=== PATIENT | female | born 1985 | race Caucasian/White ===

== ENCOUNTER 2016-09-27 22:11 | Emergency (ER) | payer OTHER ==
--- NOTE | 2016-09-27 23:55 | DIAGNOSTIC IMAGING REPORT ---
PROCEDURE: XR CHEST 2 VIEW INDICATION: CHEST PAIN TECHNIQUE: PA and lateral views. COMPARISON: None. FINDINGS: Lungs are clear. Heart and mediastinum are normal. Thorax is normal. IMPRESSION: 1. Negative chest.
--- NOTE | 2016-09-28 00:27 | ED CLINICAL REPORT ---
Clinical Report - Physicians/Mid Levels [facility] [address] [place] [address] 09/27/2016 22:12 Patient: ISAC JURADO Arrived- By private vehicle. Historian- patient. HISTORY OF PRESENT ILLNESS Chief Complaint: CHEST DISCOMFORT. This started today and is still present. It was abrupt in onset and has been constant but is not gone now. Onset during work. At its maximum, severity described as moderate. When seen in the E.D., severity described as moderate. Modifying factors- (reports it is non-exertional). Not worsened by anything. Not relieved by anything. It is described as "pain" and it is described as located in the central chest area. No radiation. No nausea, vomiting, difficulty breathing or diaphoresis. No additional chest pain. (reports no hemoptysis, leg swelling, or recent trauma). Similar symptoms previously: Many times. Recent medical care: Not recently seen/assessed. REVIEW OF SYSTEMS No fever, chills, sore throat, abdominal pain or black stools. No difficulty with urination or bloody stools. All systems otherwise negative, except as recorded above. PAST HISTORY See nurses notes. Denies the following risk factors for DVT/PE - history of DVT and pulmonary embolism, recent surgery, recent [place] and congestive heart failure. Denies the following risk factors for DVT/PE - cancer, clotting disorder, estrogens, obesity and immobility. Denies the following risk factors for DVT/PE - advanced in age and vena cava filter. SOCIAL HISTORY Never smoker. No alcohol use or drug use. No recent travel. Is a local resident. FAMILY HISTORY Negative. No history of heart disease. No family history of premature onset heart disease or aortic aneurysm. ADDITIONAL NOTES The nursing notes have been reviewed. PHYSICAL EXAM Vital Signs: 09/27/2016 22:20 BP: 123/71. HR: 72. RR: 20. O2 saturation: 98%. Temp: 98.3 F. Pain level now: 5/10. Blood pressure normal. Oxygen saturation normal. Appearance: Alert. Oriented X3. No acute distress. Eyes: Pupils equal, round and reactive to light. Eyes normal inspection. (right iris is brown and left is blue). ENT: Ears normal. Nose normal. Pharynx normal. Neck: Normal inspection. Neck supple. CVS: Normal heart rate and rhythm. Heart sounds normal. Pulses normal. Respiratory: No respiratory distress. Breath sounds normal. Chest nontender. Abdomen: Soft and nontender. Bowel sounds normal. No organomegaly. No mass. Femoral pulses equal. Back: Normal external inspection. Skin: Skin warm and dry. Normal skin color. No rash. Normal skin turgor. Extremities: Extremities exhibit normal ROM. No lower extremity edema. Neuro: Oriented X 3. No motor deficit. No sensory deficit. LABS, X-RAYS, AND EKG EKG: No acute process. No acute ischemia. Normal EKG. Normal sinus rhythm. Rate: 62. Normal P waves. Normal JOSEMANUEL. Normal QRS complex. Normal axis. Normal ST and T waves, QT and QTc. The study has been interpreted contemporaneously by me. The study has been independently viewed by me. The EKG appears to be a good tracing. Chest X-ray: No acute disease. Normal lung markings present. No infiltrate. Views: PA and lateral. The X-rays were independently viewed by me and interpreted contemporaneously by me. PROGRESS AND PROCEDURES Course of Care: The patient is a pleasant 28-year-old female with no pertinent past medical history presenting for anxiety and chest pain. He is at low risk for cardiac etiology of the chest pain. Patient is less than 35 years old. Patient is also no family history of early cardiac disease. Patient is currently PE RC negative. We'll evaluate patient's his symptoms today with EKG to check for any signs of conduction abnormalities as well as other abnormalities withcardiopulmonary function in regards to pneumonia, pneumothorax. workup does not show any acute abnormalities. Patient with normal EKG. No abnormalities on chest x-ray. Patient continues to be resting in bed and in no acute distress. Head discussion with patient and with significant other was at bedside about possible causes for the chest pain. At this time, recommended patient follow-up with cardiology and follow up with her primary care doctor for further evaluation of the chest pain. Do not feel patient is having an acute myocardial infarction or other more sinister cause of her chest pain here today in the emergency department. Discussed with patient workup, diagnosis, home care, follow-up, and return precautions. All questions answered. The patient expressed understanding of these instructions and was agreeable to them. Do not feel patient needs to be admitted to the hospital require further emergency department evaluation. Patient is stable outpatient candidate. Disposition: Discharged. Condition: good. CLINICAL IMPRESSION Chest pain characterized as "discomfort" .12 lead EKG performed. 09/27/2016 22:20 BP: 123/71. HR: 72. RR: 20. O2 saturation: 98%. Temp: 98.3 F. Pain level now: 5/10. Blood pressure normal. Oxygen saturation normal. INSTRUCTIONS Warnings: GENERAL WARNINGS: Return or contact your physician immediately if your condition worsens or changes unexpectedly, if not improving as expected, or if other problems arise. SPECIFICALLY, return if you develop chest, neck, jaw, shoulder, arm, or back pain, difficulty breathing, a fluttering sensation in your chest, lightheadedness, fainting, excessive fatigue, or sudden sweating. Your Current Medications: CONTINUE TAKING THE FOLLOWING MEDICATIONS: None*. Prescription Medications: Pepcid 20 mg: take 1 orally every 12 hours as needed for indigestion, upset stomach or heartburn. Dispense thirty (30). No refills. Substitution is permissible. Follow-up: Return to the emergency department as needed. Follow up with your doctor in three days. Reason for referral: recheck today's concerns. Summary of care provided to patient via paper. Screening today revealed the patient's blood pressure to be in the normal range. The patient should follow up with a primary care provider for blood pressure management. Understanding of the discharge instructions verbalized by patient. Follow-up with: Eze Hilliard MD, Cardiology, [phone], [address], [place] [address] Follow up in three days. Reason for referral: recheck today's concerns. Summary of care provided to patient via paper. (Electronically signed by Karel Wing Dr. 10/04/2016 22:59)
--- NOTE | 2016-09-28 00:27 | ED ORDER SUMMARY ---
..... 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 Operator (Continuous) (22:25 09/27/2016 HSoule per protocol) (22:44 HSoule) EKG - ER Stat (22:26 09/27/2016 HSoule per protocol) (Ack 22:37 AMcQuoid ER Tech1) (Cancelled: Duplicate Order23:21 HSoule) Ball Truing Machine Operator (Continuous) (CP) (22:43 09/27/2016 Tyree Johnson) (22:44 HSoule) Chest 2V Urgent (22:43 09/27/2016 Tyree Johnson) (Ack 22:59 AMcQuoid ER Tech1) (0:26 GUnger) EKG - ER Stat (22:43 09/27/2016 Tyree Johnson) (22:44 HSoule) Pulse oximeter (22:43 09/27/2016 Tyree Johnson) (22:44 HSoule) MEDICATION ORDERS: IV FLUIDS: IV Saline Lock (22:26 09/27/2016 HSoule per protocol) (22:26 HSoule) Ativan IV 0.25 mg (HIGH ALERT MEDICATION, NOW) (23:31 09/27/2016 Tyree Johnson) (Ack 23:34 HSoule) (23:41 RCollier R.N.) ORDER SHEET NOTES: [Electronically signed by Lois Tobin (03:34 09/28/2016)] [Electronically signed by Karel Wing Dr. (22:59 10/04/2016)] [Electronically locked/signed by Lois Tobin (03:34 09/28/2016)]
--- NOTE | 2016-09-28 00:27 | ED NURSING NOTES ---
Clinical Report - Nurses [facility] [address] [place] [address] 09/27/2016 22:12 Patient: ISAC JURADO TRIAGE Triage time 22:Sep 27 2016. Acuity: LEVEL 3. Chief Complaint: CHEST PAIN. 22:23 09/27/16. SEPSIS SCREEN: Sepsis Screen: negative. Negative (no infection suspected/documented). CHANO COMA SCORE: Chano Coma Scale: 15- eyes open spontaneously (4); best verbal response- oriented x 4 (5); best motor response- obeys commands (6). --22:23 Lois Tobin 22:20 09/27/16. BP: 123/71. HR: 72. RR: 20. O2 saturation: 98% on room air. Temp: 98.3 F (oral). Pain level now: 5/10. --22:23 Lois Tobin. Weight: 79.3 kg stated. Height/Length: 66 inches Per Patient. BMI: 28.2. --22:21 Lois Tobin. Medications None. --22:21 Lois Tobin. Medication/allergy information source: the patient. --22:23 Lois Tobin. Allergies Celexa. --22:21 Lois Tobin. History Arrived by private vehicle. Historian: patient. Accompanied by family. Primary physician (none). This started today. ( Patient reports chest pain that started today while she was at work. She reports a history of chest pain related to anxiety but is unsure if this is the same thing.). No difficulty breathing or nausea. 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 PAST MEDICAL HX: Immunizations: up-to-date. Last normal menstrual period- Aug 27. SOCIAL HX: Smoker- current status unknown (Occasional). No alcohol use or drug use. No infectious disease exposure. ABUSE ASSESSMENT: No report of abuse. FALL RISK ASSESSMENT: Fall risk assessment completed. No fall risk identified. NUTRITIONAL RISK ASSESSMENT: The nutritional risk assessment revealed no deficiencies. FUNCTIONAL ASSESSMENT: Functional assessment: no impairments noted. LEARNING NEEDS ASSESSMENT: The learning needs assessment revealed no barriers. SKIN INTEGRITY ASSESSMENT: Skin integrity risk assessment completed. No skin integrity risk identified. --22:23 Lois Tobin. PROBLEMS: Dizziness. Anxiety Reaction. --22:21 Lois Tobin. ADDITIONAL SURGERIES: Appendectomy. . Dilatation & Curettage. Ectopic . Oophorectomy. Right Eye Surgery. Rt eye. --22:21 Lois Tobin. Interventions ID band on patient. To treatment room. --22:23 Lois Tobin. PHYSICAL ASSESSMENT GENERAL / NEURO / PSYCH: Alert. Oriented X 4. Appears in no acute distress. HEENT: Mucous membranes are pink. RESPIRATORY: Respirations not labored. CVS: Normal sinus rhythm noted. EXTREMITIES: No lower extremity edema. SKIN: Skin is warm and dry. --22:24 Lois Tobin. NURSING PROGRESS NOTES mechanical intern, pulse oximeter and NIBP monitor placed on patient; monitor alarms on. Patient gowned. Reassurance given to the patient and patient's family. Two patient identifiers checked. Call light placed in reach. Side rails up x 1. Bed placed in lowest position. Brakes of bed on. Patient ready for evaluation- chart flagged and ED physician notified. --22:24 Lois Tobin 22:24 09/27/2016 Site #1 started via IV in the right antecubital space with an 20g angiocath, with aseptic technique and good blood return; one attempt. Blood drawn: rainbow set. Labeled in the presence of the patient and sent to the lab. Saline lock flushed with 10 mL saline. --22:25 Lois Tobin 23:09/27/16. BP: 112/69. HR: 58. O2 saturation: 100% on room air. Pain level now: 01/17. --23: Lois Tobin EKG time: (2310 PM). EKG was ordered, performed by a tech and shown to the ED physician. --23:13 Lauren Le 23:41 09/27/2016 Ativan (LORazepam) IVP 0.25 mg given over 1 minute(s) via site #1. Allergies verified, confirmed 5 rights and sedative warning given to the patient. IV patency established. IV site checked: no pain, redness, or swelling. IV flushed thoroughly pre- and post-medication administration. IVP given by RN. --23:41 Mary Davalos R.N. ( Patient states her pain has decreased after medication). --00:06 Lois Tobin 00:03 09/28/16. BP: 111/64. HR: 86. RR: 20. O2 saturation: 96% on room air. Pain level now: 11/17. --00:06 Lois Tobin. DISPOSITION / DISCHARGE 00:35 09/28/16. Condition at departure: improved and stable. No learning barriers present. Discharge instructions provided and reviewed with the patient and spouse. Reviewed medication(s) side effects, precautions, dosing and course information. Patient and spouse verbalized understanding. Written instructions provided in Telugu. ( Follow up with cardiology in three days). The patient was discharged by the physician. She was discharged home and accompanied by spouse. She left the Emergency Department ambulatory and via private vehicle. Spouse driving. --02:31 Lois Tobin 00:35 09/28/16. BP: 101/57. HR: 60. RR: 17. O2 saturation: 98% on room air. Temp: 98 F (oral). Pain level now: 10/20. --02:31 Lois Tobin 00:35 09/28/2016 Site #1 removed upon discharge. Catheter intact. Bandaid applied. --02:32 Lois Tobin. Locked/Released at 09/28/2016 3:34 by Lois Tobin,
--- NOTE | 2016-09-28 00:27 | ED NURSING NOTES ---
Clinical Report - Nurses [facility] [address] [place] [address] 09/27/2016 22:12 Patient: ISAC JURADO TRIAGE Triage time 22:Sep 27 2016. Acuity: LEVEL 3. Chief Complaint: CHEST PAIN. 22:23 09/27/16. SEPSIS SCREEN: Sepsis Screen: negative. Negative (no infection suspected/documented). CHANO COMA SCORE: Chano Coma Scale: 15- eyes open spontaneously (4); best verbal response- oriented x 4 (5); best motor response- obeys commands (6). --22:23 Lois Tobin 22:20 09/27/16. BP: 123/71. HR: 72. RR: 20. O2 saturation: 98% on room air. Temp: 98.3 F (oral). Pain level now: 5/10. --22:23 Lois Tobin. Weight: 79.3 kg stated. Height/Length: 66 inches Per Patient. BMI: 28.2. --22:21 Lois Tobin. Medications None. --22:21 Lois Tobin. Medication/allergy information source: the patient. --22:23 Lois Tobin. Allergies Celexa. --22:21 Lois Tobin. History Arrived by private vehicle. Historian: patient. Accompanied by family. Primary physician (none). This started today. ( Patient reports chest pain that started today while she was at work. She reports a history of chest pain related to anxiety but is unsure if this is the same thing.). No difficulty breathing or nausea. 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 PAST MEDICAL HX: Immunizations: up-to-date. Last normal menstrual period- Aug 27. SOCIAL HX: Smoker- current status unknown (Occasional). No alcohol use or drug use. No infectious disease exposure. ABUSE ASSESSMENT: No report of abuse. FALL RISK ASSESSMENT: Fall risk assessment completed. No fall risk identified. NUTRITIONAL RISK ASSESSMENT: The nutritional risk assessment revealed no deficiencies. FUNCTIONAL ASSESSMENT: Functional assessment: no impairments noted. LEARNING NEEDS ASSESSMENT: The learning needs assessment revealed no barriers. SKIN INTEGRITY ASSESSMENT: Skin integrity risk assessment completed. No skin integrity risk identified. --22:23 Lois Tobin. PROBLEMS: Dizziness. Anxiety Reaction. --22:21 Lois Tobin. ADDITIONAL SURGERIES: Appendectomy. . Dilatation & Curettage. Ectopic . Oophorectomy. Right Eye Surgery. Rt eye. --22:21 Lois Tobin. Interventions ID band on patient. To treatment room. --22:23 Lois Tobin. PHYSICAL ASSESSMENT GENERAL / NEURO / PSYCH: Alert. Oriented X 4. Appears in no acute distress. HEENT: Mucous membranes are pink. RESPIRATORY: Respirations not labored. CVS: Normal sinus rhythm noted. EXTREMITIES: No lower extremity edema. SKIN: Skin is warm and dry. --22:24 Lois Tobin. NURSING PROGRESS NOTES ekg monitor, pulse oximeter and NIBP monitor placed on patient; monitor alarms on. Patient gowned. Reassurance given to the patient and patient's family. Two patient identifiers checked. Call light placed in reach. Side rails up x 1. Bed placed in lowest position. Brakes of bed on. Patient ready for evaluation- chart flagged and ED physician notified. --22:24 Lois Tobin 22:24 09/27/2016 Site #1 started via IV in the right antecubital space with an 20g angiocath, with aseptic technique and good blood return; one attempt. Blood drawn: rainbow set. Labeled in the presence of the patient and sent to the lab. Saline lock flushed with 10 mL saline. --22:25 Lois Tobin 23:09/27/16. BP: 112/69. HR: 58. O2 saturation: 100% on room air. Pain level now: 01/17. --23: Lois Tobin EKG time: (2310 PM). EKG was ordered, performed by a tech and shown to the ED physician. --23:13 Lauren Le 23:41 09/27/2016 Ativan (LORazepam) IVP 0.25 mg given over 1 minute(s) via site #1. Allergies verified, confirmed 5 rights and sedative warning given to the patient. IV patency established. IV site checked: no pain, redness, or swelling. IV flushed thoroughly pre- and post-medication administration. IVP given by RN. --23:41 Mary Davalos R.N. ( Patient states her pain has decreased after medication). --00:06 Lois Tobin 00:03 09/28/16. BP: 111/64. HR: 86. RR: 20. O2 saturation: 96% on room air. Pain level now: 11/17. --00:06 oLis Tobin. DISPOSITION / DISCHARGE 00:35 09/28/16. Condition at departure: improved and stable. No learning barriers present. Discharge instructions provided and reviewed with the patient and spouse. Reviewed medication(s) side effects, precautions, dosing and course information. Patient and spouse verbalized understanding. Written instructions provided in Yakut. ( Follow up with cardiology in three days). The patient was discharged by the physician. She was discharged home and accompanied by spouse. She left the Emergency Department ambulatory and via private vehicle. Spouse driving. --02:31 Lois Tobin 00:35 09/28/16. BP: 101/57. HR: 60. RR: 17. O2 saturation: 98% on room air. Temp: 98 F (oral). Pain level now: 10/20. --02:31 Lois Tobin 00:35 09/28/2016 Site #1 removed upon discharge. Catheter intact. Bandaid applied. --02:32 Lois Tobin. Locked/Released at 09/28/2016 3:34 by Lois Tobin,
--- NOTE | 2016-09-28 00:27 | ED ORDER SUMMARY ---
..... Patient: ISAC JURADO OrderSheet [facility] VisitID: [id number] [place] [address] 30y, F Registration Date/Time: 09/27/2016 ORDER SHEET Weight: 79.3 kg (stated) Allergies: Celexa GENERAL ORDERS: Associate Professor Of Management (Continuous) (22:25 09/27/2016 HSoule per protocol) (22:44 HSoule) EKG - ER Stat (22:26 09/27/2016 HSoule per protocol) (Ack 22:37 AMcQuoid ER Tech1) (Cancelled: Duplicate Order23:21 HSoule) Associate Professor Of Management (Continuous) (CP) (22:43 09/27/2016 Tyree Johnson) (22:44 HSoule) Chest 2V Urgent (22:43 09/27/2016 Tyree Johnson) (Ack 22:59 AMcQuoid ER Tech1) (0:26 GUnger) EKG - ER Stat (22:43 09/27/2016 Tyree Johnson) (22:44 HSoule) Pulse oximeter (22:43 09/27/2016 Tyree Johnson) (22:44 HSoule) MEDICATION ORDERS: IV FLUIDS: IV Saline Lock (22:26 09/27/2016 HSoule per protocol) (22:26 HSoule) Ativan IV 0.25 mg (HIGH ALERT MEDICATION, NOW) (23:31 09/27/2016 Tyree Johnson) (Ack 23:34 HSoule) (23:41 RCollier R.N.) ORDER SHEET NOTES: [Electronically signed by Lois Tobin (03:34 09/28/2016)] [Electronically signed by Karel Wing Dr. (22:59 10/04/2016)] [Electronically locked/signed by Lois Tobin (03:34 09/28/2016)]
--- NOTE | 2016-10-04 22:59 | ED MAR SUMMARY ---
..... Medication Administration Record [facility] [address] [place] [address] Patient: ISAC JURADO Visit ID: [id number] 30y, F Weight: 79.3 kg Height/Length: 66 in BMI: 28.2 ALLERGIES: Celexa Given 23:41 09/27/2016 Mary Davalos R.N. Medication Administered: ATIVAN [IVP] (LORAZEPAM), Dose: 0.25 mg IVP over 1 minute(s), Site: #1 right AC. Medication Ordered: Ativan IV 0.25 mg (HIGH ALERT MEDICATION, NOW).
--- NOTE | 2016-10-04 22:59 | ED MAR SUMMARY ---
..... Medication Administration Record [facility] [address] [place] [address] Patient: ISAC JURADO Visit ID: [id number] 30y, F Weight: 79.3 kg Height/Length: 66 in BMI: 28.2 ALLERGIES: Celexa Given 23:41 09/27/2016 Mary Davalos R.N. Medication Administered: ATIVAN [IVP] (LORAZEPAM), Dose: 0.25 mg IVP over 1 minute(s), Site: #1 right AC. Medication Ordered: Ativan IV 0.25 mg (HIGH ALERT MEDICATION, NOW).
--- NOTE | 2016-10-04 22:59 | ED MED RECONCILIATION SUMMARY ---
Patient: ISAC JURADO Medication Reconciliation Report [facility] VisitID: [id number] [address] [place] [address] 30y, F Registration Date/Time: 09/27/2016 Weight: 79.3 kg Height/Length: 66 in. BMI: 28.2 ALLERGIES: Celexa The patient's Home Medications are listed below: NONE. The source(s) of the original Home Medication information: patient The following Medications were given to the patient in the Emergency Department: Ativan [IVP] IVP 0.25 mg, administered: 09/27/2016 11:41:00 PM The following Medications were prescribed to the patient: Pepcid 20 mg: take 1 orally every 12 hours as needed for indigestion, upset stomach or heartburn. Dispense thirty (30). No refills. Substitution is permissible. -- Karel Wing Dr.
--- NOTE | 2016-10-04 22:59 | ED DISCHARGE INSTRUCTIONS ---
Patient: ISAC JURADO General Instructions [facility] VisitID: [id number] [place] [address] 30y, F Registration Date/Time: 09/27/2016 Chest pain characterized as "discomfort" .12 lead EKG performed. 09/27/2016 22:20 BP: 123/71. HR: 72. RR: 20. O2 saturation: 98%. Temp: 98.3 F. Pain level now: 5/10. Blood pressure normal. Oxygen saturation normal. INSTRUCTIONS Warnings: GENERAL WARNINGS: Return or contact your physician immediately if your condition worsens or changes unexpectedly, if not improving as expected, or if other problems arise. SPECIFICALLY, return if you develop chest, neck, jaw, shoulder, arm, or back pain, difficulty breathing, a fluttering sensation in your chest, lightheadedness, fainting, excessive fatigue, or sudden sweating. Your Current Medications: CONTINUE TAKING THE FOLLOWING MEDICATIONS: None*. Prescription Medications: Pepcid 20 mg: take 1 orally every 12 hours as needed for indigestion, upset stomach or heartburn. Dispense thirty (30). No refills. Substitution is permissible. Follow-up: Return to the emergency department as needed. Follow up with your doctor in three days. Reason for referral: recheck today's concerns. Summary of care provided to patient via paper. Screening today revealed the patient's blood pressure to be in the normal range. The patient should follow up with a primary care provider for blood pressure management. Understanding of the discharge instructions verbalized by patient. Follow-up with: Eze Hilliard MD, Cardiology, , [address], [address], [place] [address] Follow up in three days. Reason for referral: recheck today's concerns. Summary of care provided to patient via paper. ADDITIONAL INFORMATION Chest Pain, Uncertain Cause Chest pain can happen for a number of reasons. Sometimes the cause can not be determined. If yourcondition does not seem serious, and your pain does not appear to be coming from your heart, your doctor may recommend watching it closely. Sometimes the signs of a serious problem take more time to appear. Therefore, watch for the warning signs listed below. Home care After your visit, follow these recommendations: Rest today and avoid strenuous activity. Take any prescribed medicine as directed. Follow-up care Follow up with your doctor or this facility as instructed or if you do not start to feel better within 24 hours. Call 911 Get immediate medical attention if any of the following occur: A change in the type of pain: if it feels different, becomes more severe, lasts longer, or begins to spread into your shoulder, arm, neck, jaw or back Shortness of breath or increased pain with breathing Weakness, dizziness, or fainting Rapid heart beat Get prompt medical attention Call your doctor right away if any of the following occur: Cough with dark colored sputum (phlegm) or blood Fever of 100.4F(38C) or higher, or as directed by your health care provider Swelling, pain or redness in one leg Famotidine Oral tablet What is this medicine? FAMOTIDINE (fa CHRISS ti kristan) is a type of antihistamine that blocks the release of stomach acid. It is used to treat stomach or intestinal ulcers. It can also relieve heartburn from acid reflux. How should I use this medicine? Take this medicine by mouth with a glass of water. Follow the directions on the prescription label. If you only take this medicine once a day, take it at bedtime. Take your doses at regular intervals. Do not take your medicine more often than directed. Talk to your precipitator operator regarding the use of this medicine in children. Special care may be needed. What side effects may I notice from receiving this medicine? Side effects that you should report to your doctor or health vision care associate as soon as possible: agitation, nervousness confusion hallucinations skin rash, itching Side effects that usually do not require medical attention (report to your doctor or health vision care associate if they continue or are bothersome): constipation diarrhea dizziness headache What may interact with this medicine? delavirdine itraconazole ketoconazole What if I miss a dose? If you miss a dose, take it as soon as you can. If it is almost time for your next dose, take only that dose. Do not take double or extra doses. Where should I keep my medicine? Keep out of the reach of children. Store at room temperature between 15 and 30 degrees C (59 and 86 degrees F). Do not freeze. Throw away any unused medicine after the expiration date. What should I tell my health care provider before I take this medicine? They need to know if you have any of these conditions: kidney or liver disease trouble swallowing an unusual or allergic reaction to famotidine, other medicines, foods, dyes, or preservatives or trying to get breast-feeding What should I watch for while using this medicine? Tell your doctor or health vision care associate if your condition does not start to get better or if it gets worse. Finish the full course of tablets prescribed, even if you feel better. Do not take with aspirin, ibuprofen or other antiinflammatory medicines. These can make your condition worse. Do not smoke cigarettes or drink alcohol. These cause irritation in your stomach and can increase the time it will take for ulcers to heal. If you get black, tarry stools or vomit up what looks like coffee grounds, call your doctor or health vision care associate at once. You may have a bleeding ulcer. You have been given the following additional information: Chest Pain, Uncertain Cause Famotidine Oral tablet (Electronically signed by Karel Wing Dr. 10/04/2016 22:59)
--- NOTE | 2016-10-04 22:59 | ED MED RECONCILIATION SUMMARY ---
Patient: ISAC JURADO Medication Reconciliation Report [facility] VisitID: [id number] [address] [place] [address] 30y, F Registration Date/Time: 09/27/2016 Weight: 79.3 kg Height/Length: 66 in. BMI: 28.2 ALLERGIES: Celexa The patient's Home Medications are listed below: NONE. The source(s) of the original Home Medication information: patient The following Medications were given to the patient in the Emergency Department: Ativan [IVP] IVP 0.25 mg, administered: 09/27/2016 11:41:00 PM The following Medications were prescribed to the patient: Pepcid 20 mg: take 1 orally every 12 hours as needed for indigestion, upset stomach or heartburn. Dispense thirty (30). No refills. Substitution is permissible. -- Karel Wing Dr.
--- NOTE | 2016-10-04 22:59 | ED DISCHARGE INSTRUCTIONS ---
Patient: ISAC JURADO General Instructions [facility] VisitID: [id number] [place] [address] 30y, F Registration Date/Time: 09/27/2016 Chest pain characterized as "discomfort" .12 lead EKG performed. 09/27/2016 22:20 BP: 123/71. HR: 72. RR: 20. O2 saturation: 98%. Temp: 98.3 F. Pain level now: 5/10. Blood pressure normal. Oxygen saturation normal. INSTRUCTIONS Warnings: GENERAL WARNINGS: Return or contact your physician immediately if your condition worsens or changes unexpectedly, if not improving as expected, or if other problems arise. SPECIFICALLY, return if you develop chest, neck, jaw, shoulder, arm, or back pain, difficulty breathing, a fluttering sensation in your chest, lightheadedness, fainting, excessive fatigue, or sudden sweating. Your Current Medications: CONTINUE TAKING THE FOLLOWING MEDICATIONS: None*. Prescription Medications: Pepcid 20 mg: take 1 orally every 12 hours as needed for indigestion, upset stomach or heartburn. Dispense thirty (30). No refills. Substitution is permissible. Follow-up: Return to the emergency department as needed. Follow up with your doctor in three days. Reason for referral: recheck today's concerns. Summary of care provided to patient via paper. Screening today revealed the patient's blood pressure to be in the normal range. The patient should follow up with a primary care provider for blood pressure management. Understanding of the discharge instructions verbalized by patient. Follow-up with: Eze Hilliard MD, Cardiology, , [address], [address], [place] [address] Follow up in three days. Reason for referral: recheck today's concerns. Summary of care provided to patient via paper. ADDITIONAL INFORMATION Chest Pain, Uncertain Cause Chest pain can happen for a number of reasons. Sometimes the cause can not be determined. If yourcondition does not seem serious, and your pain does not appear to be coming from your heart, your doctor may recommend watching it closely. Sometimes the signs of a serious problem take more time to appear. Therefore, watch for the warning signs listed below. Home care After your visit, follow these recommendations: Rest today and avoid strenuous activity. Take any prescribed medicine as directed. Follow-up care Follow up with your doctor or this facility as instructed or if you do not start to feel better within 24 hours. Call 911 Get immediate medical attention if any of the following occur: A change in the type of pain: if it feels different, becomes more severe, lasts longer, or begins to spread into your shoulder, arm, neck, jaw or back Shortness of breath or increased pain with breathing Weakness, dizziness, or fainting Rapid heart beat Get prompt medical attention Call your doctor right away if any of the following occur: Cough with dark colored sputum (phlegm) or blood Fever of 100.4F(38C) or higher, or as directed by your health care provider Swelling, pain or redness in one leg Famotidine Oral tablet What is this medicine? FAMOTIDINE (fa CHRISS ti kristan) is a type of antihistamine that blocks the release of stomach acid. It is used to treat stomach or intestinal ulcers. It can also relieve heartburn from acid reflux. How should I use this medicine? Take this medicine by mouth with a glass of water. Follow the directions on the prescription label. If you only take this medicine once a day, take it at bedtime. Take your doses at regular intervals. Do not take your medicine more often than directed. Talk to your professor of english regarding the use of this medicine in children. Special care may be needed. What side effects may I notice from receiving this medicine? Side effects that you should report to your doctor or health healthcare administration internship as soon as possible: agitation, nervousness confusion hallucinations skin rash, itching Side effects that usually do not require medical attention (report to your doctor or health healthcare administration internship if they continue or are bothersome): constipation diarrhea dizziness headache What may interact with this medicine? delavirdine itraconazole ketoconazole What if I miss a dose? If you miss a dose, take it as soon as you can. If it is almost time for your next dose, take only that dose. Do not take double or extra doses. Where should I keep my medicine? Keep out of the reach of children. Store at room temperature between 15 and 30 degrees C (59 and 86 degrees F). Do not freeze. Throw away any unused medicine after the expiration date. What should I tell my health care provider before I take this medicine? They need to know if you have any of these conditions: kidney or liver disease trouble swallowing an unusual or allergic reaction to famotidine, other medicines, foods, dyes, or preservatives or trying to get breast-feeding What should I watch for while using this medicine? Tell your doctor or health healthcare administration internship if your condition does not start to get better or if it gets worse. Finish the full course of tablets prescribed, even if you feel better. Do not take with aspirin, ibuprofen or other antiinflammatory medicines. These can make your condition worse. Do not smoke cigarettes or drink alcohol. These cause irritation in your stomach and can increase the time it will take for ulcers to heal. If you get black, tarry stools or vomit up what looks like coffee grounds, call your doctor or health healthcare administration internship at once. You may have a bleeding ulcer. You have been given the following additional information: Chest Pain, Uncertain Cause Famotidine Oral tablet (Electronically signed by Karel Wing Dr. 10/04/2016 22:59)
== END 2016-09-28 00:35 | disposition home or self-care (01) ==
LOC: ED SRH 22:11
DX: R07.89 Other chest pain (principal); I50.9 Heart failure, unspecified; Z86.718 Personal history of other venous thrombosis and embolism; Z86.711 Personal history of pulmonary embolism; Z88.8 Allergy status to other drugs, medicaments and biological substances

== ENCOUNTER 2016-10-13 20:44 | Emergency (ER) | payer OTHER ==
--- NOTE | 2016-10-13 21:49 | ED ORDER SUMMARY ---
..... Patient: ISAC JURADO [facility] VisitID: [id number] [address] [place] [address] 30y, F Registration Date/Time: 10/13/2016 ORDER SHEET Weight: 74.8 kg (stated) Allergies: Celexa GENERAL ORDERS: UA-Culture if indicated Urgent (21:27 10/13/2016 JQuiveghislaine R.N. per protocol) (Ack 21:31 CHagtamara ER Weigher And Charger) (21:31 Salma ER Weigher And Charger) Urine Urgent (21:38 10/13/2016 Tyree Johnson) (21:38 CHagerty ER Weigher And Charger) MEDICATION ORDERS: Keflex PO 500 mg (NOW) (21:46 10/13/2016 Tyree Johnson) (Ack 21:51 JQuivey R.N.) (21:58 JQuivey R.N.) IV FLUIDS: ORDER SHEET NOTES: [Electronically signed by Karel Wing Dr. (21:59 10/13/2016)] [Electronically signed by Antoine Caldwell R.N. (22:22 10/13/2016)] [Electronically locked/signed by Antoine Caldwell R.N. (22:22 10/13/2016)]
--- NOTE | 2016-10-13 21:49 | ED NURSING NOTES ---
Clinical Report - [facility] [address] [address] 10/13/2016 20:44 Patient: ISAC JURADO TRIAGE Triage time 21:16. Acuity: LEVEL 4. Chief Complaint: RIGHT UPPER TOOTHACHE. 21:26. Alert. SEPSIS SCREEN: Sepsis Screen. Negative (no infection suspected/documented). --21:26 Antoine Caldwell R.N. 21:16 10/13/16. BP: 147/79. HR: 78. RR: 15. O2 saturation: 99%. Temp: 97.9 F (oral). Pain level now: 03/19. --21:26 Antoine Caldwell R.N. Weight: 74.8 kg stated. Height/Length: 66 inches Per Patient. BMI: 26.6. --21:22 Antoine Caldwell R.N. Medications None. --21:23 Antoine Caldwell R.N. Allergies Celexa. --21:23 Antoine Caldwell R.N. Medication/allergy information source: the patient. --21:26 Antoine Caldwell R.N. History Arrived by private vehicle. Historian: patient. Accompanied by friend. Primary physician ([facility]). Onset. (2 days ago). She has a dental appointment scheduled (Next week). 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 PAST MEDICAL HX: Immunizations: up-to-date. Last normal menstrual period was 2 weeks ago. SOCIAL HX: Current every day light tobacco smoker- less than 1/2 a pack per day. Occasional alcohol use. No drug use. No infectious disease exposure. ABUSE ASSESSMENT: No report of abuse. FALL RISK ASSESSMENT: Fall risk assessment completed. No fall risk identified. NUTRITIONAL RISK ASSESSMENT: The nutritional risk assessment revealed no deficiencies. FUNCTIONAL ASSESSMENT: Functional assessment: no impairments noted. LEARNING NEEDS ASSESSMENT: The learning needs assessment revealed no barriers. SKIN INTEGRITY ASSESSMENT: Skin integrity risk assessment completed. No skin integrity risk identified. --21:26 Antoine Caldwell R.N. PROBLEMS: Dizziness. Anxiety Reaction. --21:24 Antoine Caldwell R.N. ADDITIONAL SURGERIES: Appendectomy. . Dilatation & Curettage. Ectopic . Oophorectomy. Right Eye Surgery. --21:24 Antoine Caldwell R.N. Interventions ID band on patient. To treatment room. --21:26 Antoine Caldwell R.N. PHYSICAL ASSESSMENT 21:19. Ambulatory to room. GENERAL / NEURO / PSYCH: Alert. Oriented X 4. HEENT: Voice within normal limits. Mucous membranes are pink. RESPIRATORY: Respirations not labored. SKIN: Skin is warm and dry. Normal skin turgor. --21:19 Antoine Caldwell R.N. NURSING PROGRESS NOTES 21:18. Patient ID band checked for patient name and birthdate: patient confirmed. Clean catch urine collected with return of yellow-colored cloudy urine; sample sent to lab for urinalysis. Specimen labeled in the presence of the patient. --21:26 Antoine Caldwell R.N. 21:22. Head of bed elevated. Two patient identifiers checked. Call light placed in reach. Bed placed in lowest position. Brakes of bed on. Patient ready for evaluation- chart flagged. --21:27 Antoine Caldwell R.N. 21:55 10/13/2016 Keflex (Cephalexin) PO 500 mg given. Allergies verified and confirmed 5 rights. --21:58 Antoine Caldwell R.N. 22:00. The patient is calm and resting quietly. GENERAL / NEURO / PSYCH: Alert. Oriented X 4. RESPIRATORY: No respiratory distress. SKIN: Skin is warm and dry. --22:02 Antoine Caldwell R.N. DISPOSITION / DISCHARGE Departure time: 22:01. Condition at departure: stable. No learning barriers present. Discharge instructions provided and reviewed with the patient. Reviewed medication(s) side effects, precautions, dosing and course information. Prescription(s) given to the patient. Patient verbalized understanding. Written instructions provided in Kittitian. The patient was discharged home and accompanied by broadcast technician. She left the Emergency Department ambulatory and via private vehicle. Roll Press Operator driving. FALL RISK ASSESSMENT: Fall risk assessment completed. No fall risk identified. --22:02 Antoine Caldwell R.N. Locked/Released at 10/13/2016 22:22 by Antoine Caldwell R.N.
--- NOTE | 2016-10-13 21:49 | ED CLINICAL REPORT ---
Clinical Report - Phys[facility] [address] [place] [address] 10/13/2016 20:44 Patient: ISAC JURADO Arrived- By private vehicle. Historian- patient. HISTORY OF PRESENT ILLNESS Chief Complaint: DENTAL PAIN. This started a few days ago and is still present (worsening). It was abrupt in onset and has been constant but is not gone now. Pain described as moderate. The patient has had toothache, swelling of the face and facial pain. (reports this happened after biting a unpopped corn kernel while eating popcorn. reports she did see a dentist and needs to be on abx. reports she also has a UTI. Says she has frequency and change in odor. No other symptoms such as discharge, rashes, lesions. Symptoms are mild in severity and intermittent. Reports she does not know what makes it better or worse but does suspect that it would improve with abx.). Similar symptoms previously: Recent medical care: The patient was seen recently by a health care provider (dental office). REVIEW OF SYSTEMS No fever, chest pain, nausea, skin rash or vomiting. All systems otherwise negative, except as recorded above. PAST HISTORY See nurses notes. SOCIAL HISTORY Smoker- current status unknown. Occasional alcohol use. No drug use. Is a local resident. FAMILY HISTORY Negative. ADDITIONAL NOTES The nursing notes have been reviewed. PHYSICAL EXAM Vital Signs: 10/13/2016 21:16 BP: 147/79. HR: 78. RR: 15. O2 saturation: 99%. Temp: 97.9 F. Pain level now: 7/10. Blood pressure normal. Oxygen saturation normal. Appearance: Alert. No acute distress. Head: Normal external inspection. (right iris is brown and left is light blue). Eyes: Pupils equal, round and reactive to light. Conjunctivae and eyelids normal. ENT: Drooling present. Moderate, localized dental decay (upper right first premolar) (tooth is fracture with exposed pulp. no bleeding. appears to have prior dental decay there.). Ears normal. Nose normal. Pharynx normal. Lips normal. Gums normal. Uvula midline. (mild right sided facial swelling. no abscess. no signs of ANUG.). Neck: Normal inspection. Trachea midline. No adenopathy. Thyroid normal. Neck supple. CVS: Normal heart rate and rhythm. Heart sounds normal. Pulses normal. Respiratory: No respiratory distress. Breath sounds normal. Chest nontender. Abdomen: Soft and nontender. No organomegaly. Skin: Normal skin color. No rash. Normal skin turgor. Extremities: Extremities exhibit normal ROM. Extremities nontender. LABS, X-RAYS, AND EKG Laboratory Tests: UA-Culture if indicated: (LIBERTY: 10/13/2016 21:20) ( MsgRcvd 10/13/2016 21:39) IP Test Result Flag Units (Reference) URINE COLOR YELLOW URINE APPEARANCE CLEAR URINE GLUCOSE NEGATIVE (NEGATIVE) URINE BILIRUBIN NEGATIVE (NEGATIVE) URINE KETONE NEGATIVE (NEGATIVE) URINE SPECIFIC GRAVITY 1.015 (1.010-1.030) URINE PH 8.0 (5.0-8.0) URINE PROTEIN NEGATIVE (NEGATIVE) URINE UROBILINOGEN 0.2 EU/dL (0.2-1.0) URINE NITRITE POSITIVE (NEGATIVE) URINE BLOOD NEGATIVE (NEGATIVE) URINE LEUK ESTERASE NEGATIVE (NEGATIVE) . PROGRESS AND PROCEDURES Course of Care: The patient is a pleasant 28-year-old female presented for evaluation of urinary tract symptoms as well as dental infection. Patient does not have any signs ofANUG or Babatunde angina, peritonsillar abscess, retropharyngeal abscess. Patient will be evaluated with urinalysis and urine test for her urinary symptoms. Patient is agreeable to treatment plan. Patien Declines offers of pain medication at this time. Patient is resting in bed and in no acute distress. Patient appears nontoxic. Workup does not show any acute abnormalities except for urinary tract infection. Urine test is noted to be negative. Patient will be given antibiotics to treat the urinary tract infection and the dental infection. Patient continues to be nontoxic and in no acute distress. Discussed with patient workup, diagnosis, home care, follow-up, and return precautions. All questions answered. The patient expressed understanding of these instructions and was agreeable to them. Patient is a good outpatient candidate. CLINICAL IMPRESSION Dental caries (localized) (acute right first maxillary premolar). Acute urinary tract infection (site not specified). acute right sided facial pain. INSTRUCTIONS Warnings: GENERAL WARNINGS: Return or contact your physician immediately if your condition worsens or changes unexpectedly, if not improving as expected, or if other problems arise. Specifically return if pain, vomiting, bleeding, breathing difficulty or fever. Your Current Medications: CONTINUE TAKING THE FOLLOWING MEDICATIONS: None*. Prescription Medications: Keflex 500 mg: take 1 capsule orally every 8 hours for 5 days. No refill. Substitution is permissible. (disp 15 caps) Motrin 600 mg tablets: take 1 tablet orally every 6 hours as needed for pain, stiffness or swelling. Dispense thirty (30). No refill. Substitution is permissible. Follow-up: Return to the emergency department as needed. Follow up with a specialist Your dentist as scheduled. Reason for referral: recheck today's concerns. Summary of care provided to patient via paper. Follow up with your doctor in three days. Reason for referral: recheck today's concerns. Summary of care provided to patient via paper. Screening today revealed the patient's blood pressure to be in the normal range. The patient should follow up with a primary care provider for blood pressure management. Understanding of the discharge instructions verbalized by patient. (Electronically signed by Karel Wing Dr. 10/13/2016 21:59)
--- NOTE | 2016-10-13 21:49 | ED NURSING NOTES ---
Clinical Report - Nurses [facility] [place] [address] 10/13/2016 20:44 Patient: ISAC JURADO TRIAGE Triage time 21:16. Acuity: LEVEL 4. Chief Complaint: RIGHT UPPER TOOTHACHE. 21:26. Alert. SEPSIS SCREEN: Sepsis Screen. Negative (no infection suspected/documented). --21:26 Antoine Caldwell R.N. 21:16 10/13/16. BP: 147/79. HR: 78. RR: 15. O2 saturation: 99%. Temp: 97.9 F (oral). Pain level now: 03/19. --21:26 Antoine Caldwell R.N. Weight: 74.8 kg stated. Height/Length: 66 inches Per Patient. BMI: 26.6. --21:22 Antoine Caldwell R.N. Medications None. --21:23 Antoine Caldwell R.N. Allergies Celexa. --21:23 Antoine Caldwell R.N. Medication/allergy information source: the patient. --21:26 Antoine Caldwell R.N. History Arrived by private vehicle. Historian: patient. Accompanied by friend. Primary physician ([facility]). Onset. (2 days ago). She has a dental appointment scheduled (Next week). 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 PAST MEDICAL HX: Immunizations: up-to-date. Last normal menstrual period was 2 weeks ago. SOCIAL HX: Current every day light tobacco smoker- less than 1/2 a pack per day. Occasional alcohol use. No drug use. No infectious disease exposure. ABUSE ASSESSMENT: No report of abuse. FALL RISK ASSESSMENT: Fall risk assessment completed. No fall risk identified. NUTRITIONAL RISK ASSESSMENT: The nutritional risk assessment revealed no deficiencies. FUNCTIONAL ASSESSMENT: Functional assessment: no impairments noted. LEARNING NEEDS ASSESSMENT: The learning needs assessment revealed no barriers. SKIN INTEGRITY ASSESSMENT: Skin integrity risk assessment completed. No skin integrity risk identified. --21:26 Antoine Cladwell R.N. PROBLEMS: Dizziness. Anxiety Reaction. --21:24 Antoine Caldwell R.N. ADDITIONAL SURGERIES: Appendectomy. . Dilatation & Curettage. Ectopic . Oophorectomy. Right Eye Surgery. --21:24 Antoine Caldwell R.N. Interventions ID band on patient. To treatment room. --21:26 Antoine Caldwell R.N. PHYSICAL ASSESSMENT 21:19. Ambulatory to room. GENERAL / NEURO / PSYCH: Alert. Oriented X 4. HEENT: Voice within normal limits. Mucous membranes are pink. RESPIRATORY: Respirations not labored. SKIN: Skin is warm and dry. Normal skin turgor. --21:19 Antoine Caldwell R.N. NURSING PROGRESS NOTES 21:18. Patient ID band checked for patient name and birthdate: patient confirmed. Clean catch urine collected with return of yellow-colored cloudy urine; sample sent to lab for urinalysis. Specimen labeled in the presence of the patient. --21:26 Antoine Caldwell R.N. 21:22. Head of bed elevated. Two patient identifiers checked. Call light placed in reach. Bed placed in lowest position. Brakes of bed on. Patient ready for evaluation- chart flagged. --21:27 Antoine Caldwell R.N. 21:55 10/13/2016 Keflex (Cephalexin) PO 500 mg given. Allergies verified and confirmed 5 rights. --21:58 Antoine Caldwell R.N. 22:00. The patient is calm and resting quietly. GENERAL / NEURO / PSYCH: Alert. Oriented X 4. RESPIRATORY: No respiratory distress. SKIN: Skin is warm and dry. --22:02 Antoine Caldwell R.N. DISPOSITION / DISCHARGE Departure time: 22:01. Condition at departure: stable. No learning barriers present. Discharge instructions provided and reviewed with the patient. Reviewed medication(s) side effects, precautions, dosing and course information. Prescription(s) given to the patient. Patient verbalized understanding. Written instructions provided in Thai. The patient was discharged home and accompanied by remote sensing research scientist. She left the Emergency Department ambulatory and via private vehicle. Nuclear Engineering Technician driving. FALL RISK ASSESSMENT: Fall risk assessment completed. No fall risk identified. --22:02 Antoine Caldwell R.N. Locked/Released at 10/13/2016 22:22 by Antoine Caldwell R.N.
--- NOTE | 2016-10-13 21:49 | ED ORDER SUMMARY ---
..... Patient: ISAC JURADO OrderSheet [facility] VisitID: [id number] [address] [place] [address] 30y, F Registration Date/Time: 10/13/2016 ORDER SHEET Weight: 74.8 kg (stated) Allergies: Celexa GENERAL ORDERS: UA-Culture if indicated Urgent (21:27 10/13/2016 JQuiveghislaine R.N. per protocol) (Ack 21:31 CHagtamara ER Assistant Counsel) (21:31 Salma ER Assistant Counsel) Urine Urgent (21:38 10/13/2016 Tyree Johnson) (21:38 CHagerty ER Assistant Counsel) MEDICATION ORDERS: Keflex PO 500 mg (NOW) (21:46 10/13/2016 Tyree Johnson) (Ack 21:51 JQuivey R.N.) (21:58 JQuivey R.N.) IV FLUIDS: ORDER SHEET NOTES: [Electronically signed by Karel Wing Dr. (21:59 10/13/2016)] [Electronically signed by Antoine Caldwell R.N. (22:22 10/13/2016)] [Electronically locked/signed by Antoine Caldwell R.N. (22:22 10/13/2016)]
--- NOTE | 2016-10-13 22:22 | ED MED RECONCILIATION SUMMARY ---
Patient: ISAC JURADO Medication Reconciliation Report [facility] VisitID: [id number] [address] [place] [address] 30y, F Registration Date/Time: 10/13/2016 Weight: 74.8 kg Height/Length: 66 in. BMI: 26.6 ALLERGIES: Celexa The patient's Home Medications are listed below: NONE. The source(s) of the original Home Medication information: patient The following Medications were given to the patient in the Emergency Department: Keflex [PO] PO 500 mg, administered: 10/13/2016 9:55:00 PM The following Medications were prescribed to the patient: Keflex 500 mg: take 1 capsule orally every 8 hours for 5 days. No refill. Substitution is permissible.(disp 15 caps) -- Karel Wing Dr. Motrin 600 mg tablets: take 1 tablet orally every 6 hours as needed for pain, stiffness or swelling. Dispense thirty (30). No refill. Substitution is permissible. -- Karel Wing Dr.
--- NOTE | 2016-10-13 22:22 | ED MED RECONCILIATION SUMMARY ---
Patient: ISAC JURADO Medication Reconciliation Report [facility] VisitID: [id number] [address] [place] [address] 30y, F Registration Date/Time: 10/13/2016 Weight: 74.8 kg Height/Length: 66 in. BMI: 26.6 ALLERGIES: Celexa The patient's Home Medications are listed below: NONE. The source(s) of the original Home Medication information: patient The following Medications were given to the patient in the Emergency Department: Keflex [PO] PO 500 mg, administered: 10/13/2016 9:55:00 PM The following Medications were prescribed to the patient: Keflex 500 mg: take 1 capsule orally every 8 hours for 5 days. No refill. Substitution is permissible.(disp 15 caps) -- Kaerl Wing Dr. Motrin 600 mg tablets: take 1 tablet orally every 6 hours as needed for pain, stiffness or swelling. Dispense thirty (30). No refill. Substitution is permissible. -- Karel Wing Dr.
--- NOTE | 2016-10-13 22:22 | ED MAR SUMMARY ---
..... Medication Administration Record [facility] [address] [place] [address] Patient: ISAC JURADO Visit ID: [id number] 30y, F Weight: 74.8 kg Height/Length: 66 in BMI: 26.6 ALLERGIES: Celexa Given 21:55 10/13/2016 Antoine Caldwell R.N. Medication Administered: KEFLEX [PO] (CEPHALEXIN), Dose: 500 mg PO. Medication Ordered: Keflex PO 500 mg (NOW).
--- NOTE | 2016-10-13 22:22 | ED DISCHARGE INSTRUCTIONS ---
Patient: ISAC JURADO General Instructions [facility] VisitID: [id number] [address] [place] [address] 30y, F Registration Date/Time: 10/13/2016 Dental caries (localized) (acute right first maxillary premolar). Acute urinary tract infection (site not specified). acute right sided facial pain. INSTRUCTIONS Warnings: GENERAL WARNINGS: Return or contact your physician immediately if your condition worsens or changes unexpectedly, if not improving as expected, or if other problems arise. Specifically return if pain, vomiting, bleeding, breathing difficulty or fever. Your Current Medications: CONTINUE TAKING THE FOLLOWING MEDICATIONS: None*. Prescription Medications: Keflex 500 mg: take 1 capsule orally every 8 hours for 5 days. No refill. Substitution is permissible. (disp 15 caps) Motrin 600 mg tablets: take 1 tablet orally every 6 hours as needed for pain, stiffness or swelling. Dispense thirty (30). No refill. Substitution is permissible. Follow-up: Return to the emergency department as needed. Follow up with a specialist Your dentist as scheduled. Reason for referral: recheck today's concerns. Summary of care provided to patient via paper. Follow up with your doctor in three days. Reason for referral: recheck today's concerns. Summary of care provided to patient via paper. Screening today revealed the patient's blood pressure to be in the normal range. The patient should follow up with a primary care provider for blood pressure management. Understanding of the discharge instructions verbalized by patient. ADDITIONAL INFORMATION Dental Cavity A dental cavity is a pit or crater in the enamel surface of the tooth. This exposes the sensitive inner layer of the tooth and causes pain. If untreated, the cavity will get bigger and may cause an infection or abscess in the root of the tooth. An infection in the tooth is a much more serious problem and may require a root canal or removal of the entire tooth. The tooth pain may be made worse by drinking hot or cold fluids. It may spread from the tooth to the ear or jaw on the same side. Home Care: Avoid hot and cold foods, and liquids since your tooth may be sensitive to temperature changes. If your tooth is chipped or cracked, or if there is a large open cavity, apply OIL OF CLOVES (available mweu-hfi-amdhesc in drug stores) directly to the tooth to reduce pain. Some pharmacies carry an kfez-pfj-djbbbax "toothache kit." This contains oil of cloves and a paste, which can be applied over the exposed tooth to decrease sensitivity. An ice pack on your jaw over the sore area may help to reduce pain. You may use acetaminophen (Tylenol) or ibuprofen (Motrin, Advil) to control pain, unless another pain medicine was prescribed. [ NOTE: If you have liver disease or ever had a stomach ulcer, talk with your doctor before using these medicines.] If you have signs of an infection, an antibiotic will be given. Take it as directed. Follow-Up with your dentist as directed. Although your pain may go away with the treatment given, only a dentist can fully evaluate and treat this problem to prevent further tooth damage. Get Prompt Medical Attention if any of the following occur: Redness or swelling of the face Pain worsens or spreads to the neck Fever over 100.5 F (38C) Unusual drowsiness; headache or stiff neck; weakness or fainting Pus drains from the tooth or gum Difficulty swallowing or breathing Dental Pain A crack or cavity in the tooth, which exposes the sensitive inner area of the tooth can cause tooth pain. An infection in the gum or the root of the tooth can cause pain and swelling. The pain is often made worse by drinking hot or cold fluids, or biting on hard foods. Pain may spread from the tooth to the ear or jaw on the same side. Home Care: Avoid hot and cold foods and liquids since your tooth may be sensitive to temperature changes. If your tooth is chipped or cracked, or if there is a large open cavity, apply OIL OF CLOVES (available wqgv-dpg-yjvczco in drug stores) directly to the tooth to reduce pain. Some pharmacies carry an qniy-ssj-ncmkrpn "toothache kit." This contains a paste, which can be applied over the exposed tooth to decrease sensitivity. A cold pack on your jaw over the sore area may help reduce pain. You may use acetaminophen (Tylenol) or ibuprofen (Motrin, Advil) to control pain, unless another medicine was prescribed. [ NOTE: If you have chronic liver or kidney disease or ever had a stomach ulcer or GI bleeding, talk with your doctor before using these medicines.] If you have signs of an infection, an antibiotic will be given. Take it as directed. Follow-Up as directed with a dentist. Your pain may go away with the treatment given. However, only a dentist can fully evaluate and treat the cause and prevent the pain from coming back again. TOOTHACHE IS A SIGN OF DISEASE IN YOUR TOOTH AND SHOULD BE EXAMINED AND TREATED BY A DENTIST. Get Prompt Medical Attention if any of the following occur: Your face becomes swollen or red Pain worsens or spreads to the neck Fever over 100.4 F (38.0 C) Unusual drowsiness; headache or stiff neck; weakness or fainting Pus drains from the tooth Difficulty swallowing or breathing Bladder Infection,Female (Adult) A bladder infection ("cystitis" or "UTI") usually causes a constant urge to urinate and a burning when passing urine. Urine may be cloudy, smelly or dark. There may be pain in the lower abdomen. A bladder infection occurs when bacteria from the vaginal area enter the bladder opening (urethra). This can occur from sexual intercourse, wearing tight clothing, dehydration and other factors. Home Care: Drink lots of fluids (at least 6-8 glasses a day, unless you must restrict fluids for other medical reasons). This will force the medicine into your urinary system and flush the bacteria out of your body. Avoid sexual intercourse until your symptoms are gone. Avoid caffeine, alcohol and spicy foods. These can irritate the bladder. A bladder infection is treated with antibiotics. You may also be given Pyridium (generic = phenazopyridine) to reduce the burning sensation. This medicine will cause your urine to become a bright orange color. The orange urine may stain clothing. You may wear a pad or panty-liner to protect clothing. Preventing Future Infections: Always wipe from front to back after a bowel movement. Keep the genital area clean and dry. Drink plenty of fluids each day to avoid dehydration. Both sexual partners should wash before intercourse. Urinate right after intercourse to flush out the bladder. Wear cotton underwear and cotton-lined panty hose; avoid tight-fitting pants. If you are on control pills and are having frequent bladder infections, discuss with your doctor. Follow Up: Return to this facility or see your doctor if ALL symptoms are not gone after three days of treatment. Get Prompt Medical Attention if any of the following occur: Fever of 100.4F (38C) or higher, or as directed by your healthcare provider No improvement by the third day of treatment Increasing back or abdominal pain Repeated vomiting; unable to keep medicine down Weakness, dizziness or fainting Vaginal discharge Pain, redness or swelling in the labia (outer vaginal area) Blood In The Urine Blood in the urine ("hematuria") has many possible causes. If it occurs after an injury (such as a car accident or fall), it is most often a sign of bruising to the kidney or bladder. Common medical causes of blood in the urine include urinary tract infection, kidney stone, inflammation, tumors, or certain other diseases of the kidney or bladder. Menstruation can cause blood to appear in the urine sample, although it is not coming from the urinary tract. If only a trace amount of blood is present, it will show up on the urine test, even though the urine may be yellow and not pink or red. This may occur with any of the above conditions, as well as heavy exercise or high fever. In this case, your doctor may want to repeat the urine test on another day. This will show if the blood is still present. If so, then other tests can be done to find out the cause. Home Care: If your urine does not appear bloody (pink, brown or red) then you do not need to restrict your activity in any way. If you can see blood in your urine, rest and avoid heavy exertion until your next exam. Do not use aspirin or anti-inflammatory medicine like ibuprofen (Motrin, Advil) or naproxen (Naprosyn, Aleve). These thin the blood and may increase bleeding. Follow Up with your doctor or as advised by our staff. If you were injured and had blood in your urine, you should have a repeat urine test in 1-2 days. Contact your doctor or return to this facility for this test. [NOTE: A radiologist will review any X-rays that were taken. We will notify you of any new findings that may affect your care.] Get Prompt Medical Attention if any of the following occur: Bright red blood or blood clots in the urine (if a new symptom) Weakness, dizziness or fainting New groin, abdominal or back pain Fever of 100.4F (38C) or higher, or as directed by your healthcare provider Repeated vomiting Bleeding from nose, gums or easy bruising Cephalexin Monohydrate Oral tablet What is this medicine? CEPHALEXIN (sef a BRUNO in) is a cephalosporin antibiotic. It is used to treat certain kinds of bacterial infections It will not work for colds, flu, or other viral infections. How should I use this medicine? Take this medicine by mouth with a full glass of water. Follow the directions on the prescription label. This medicine can be taken with or without food. Take your medicine at regular intervals. Do not take your medicine more often than directed. Take all of your medicine as directed even if you think you are better. Do not skip doses or stop your medicine early. Talk to your pattern changer and repairer regarding the use of this medicine in children. While this drug may be prescribed for selected conditions, precautions do apply. What side effects may I notice from receiving this medicine? Side effects that you should report to your doctor or health post acute care nurse practitioner as soon as possible: allergic reactions like skin rash, itching or hives, swelling of the face, lips, or tongue breathing problems pain or trouble passing urine redness, blistering, peeling or loosening of the skin, including inside the mouth severe or watery diarrhea unusually weak or tired yellowing of the eyes, skin Side effects that usually do not require medical attention (report to your doctor or health post acute care nurse practitioner if they continue or are bothersome): gas or heartburn genital or anal irritation headache joint or muscle pain nausea, vomiting What may interact with this medicine? probenecid some other antibiotics What if I miss a dose? If you miss a dose, take it as soon as you can. If it is almost time for your next dose, take only that dose. Do not take double or extra doses. There should be at least 4 to 6 hours between doses. Where should I keep my medicine? Keep out of the reach of children. Store at room temperature between 59 and 86 degrees F (15 and 30 degrees C). Throw away any unused medicine after the expiration date. What should I tell my health care provider before I take this medicine? They need to know if you have any of these conditions: kidney disease stomach or intestine problems, especially colitis an unusual or allergic reaction to cephalexin, other cephalosporins, penicillins, other antibiotics, medicines, foods, dyes or preservatives or trying to get breast-feeding What should I watch for while using this medicine? Tell your doctor or health post acute care nurse practitioner if your symptoms do not begin to improve in a few days. Do not treat diarrhea with over the counter products. Contact your doctor if you have diarrhea that lasts more than 2 days or if it is severe and watery. If you have diabetes, you may get a false-positive result for sugar in your urine. Check with your doctor or health post acute care nurse practitioner. Ibuprofen Oral tablet What is this medicine? IBUPROFEN (eye BYOO proe fen) is a non-steroidal anti-inflammatory drug (NSAID). It is used for dental pain, fever, headaches or migraines, osteoarthritis, rheumatoid arthritis, or painful monthly periods. It can also relieve minor aches and pains caused by a cold, flu, or sore throat. How should I use this medicine? Take this medicine by mouth with a glass of water. Follow the directions on the prescription label. Take this medicine with food if your stomach gets upset. Try to not lie down for at least 10 minutes after you take the medicine. Take your medicine at regular intervals. Do not take your medicine more often than directed. A special MedGuide will be given to you by the pharmacist with each prescription and refill. Be sure to read this information carefully each time. Talk to your pattern changer and repairer regarding the use of this medicine in children. Special care may be needed. What side effects may I notice from receiving this medicine? Side effects that you should report to your doctor or health post acute care nurse practitioner as soon as possible: allergic reactions like skin rash, itching or hives, swelling of the face, lips, or tongue black or bloody stools, blood in the urine or in vomit breathing problems changes in vision chest pain general ill feeling or flu-like symptoms nausea or vomiting redness, blistering, peeling or loosening of the skin, including inside the mouth slurred speech or weakness on one side of the body stomach pain unexplained weight gain or swelling unusually weak or tired yellowing of eyes or skin Side effects that usually do not require medical attention (report to your doctor or health post acute care nurse practitioner if they continue or are bothersome): constipation or diarrhea dizziness gas or heartburn stomach upset What may interact with this medicine? Do not take this medicine with any of the following medications: cidofovir ketorolac methotrexate pemetrexed This medicine may also interact with the following medications: alcohol aspirin diuretics lithium other drugs for inflammation like prednisone warfarin What if I miss a dose? If you miss a dose, take it as soon as you can. If it is almost time for your next dose, take only that dose. Do not take double or extra doses. Where should I keep my medicine? Keep out of the reach of children. Store at room temperature between 15 and 30 degrees C (59 and 86 degrees F). Keep container tightly closed. Throw away any unused medicine after the expiration date. What should I tell my health care provider before I take this medicine? They need to know if you have any of these conditions: asthma cigarette smoker drink more than 3 alcohol containing drinks a day heart disease or circulation problems such as heart failure or leg edema (fluid retention) high blood pressure kidney disease liver disease stomach bleeding or ulcers an unusual or allergic reaction to ibuprofen, aspirin, other NSAIDS, other medicines, foods, dyes, or preservatives or trying to get breast-feeding What should I watch for while using this medicine? Tell your doctor or healthcare professional if your symptoms do not start to get better or if they get worse. This medicine does not prevent heart attack or stroke. In fact, this medicine may increase the chance of a heart attack or stroke. The chance may increase with longer use of this medicine and in people who have heart disease. If you take aspirin to prevent heart attack or stroke, talk with your doctor or health post acute care nurse practitioner. Do not take other medicines that contain aspirin, ibuprofen, or naproxen with this medicine. Side effects such as stomach upset, nausea, or ulcers may be more likely to occur. Many medicines available without a prescription should not be taken with this medicine. This medicine can cause ulcers and bleeding in the stomach and intestines at any time during treatment. Ulcers and bleeding can happen without warning symptoms and can cause . To reduce your risk, do not smoke cigarettes or drink alcohol while you are taking this medicine. You may get drowsy or dizzy. Do not drive, use machinery, or do anything that needs mental alertness until you know how this medicine affects you. Do not stand or sit up quickly, especially if you are an older patient. This reduces the risk of dizzy or fainting spells. This medicine can cause you to bleed more easily. Try to avoid damage to your teeth and gums when you brush or floss your teeth. You have been given the following additional information: Dental Cavity Dental Pain Bladder Infection, Female (Adult) Hematuria Cephalexin Monohydrate Oral tablet Ibuprofen Oral tablet (Electronically signed by Karel Wing Dr. 10/13/2016 21:59)
--- NOTE | 2016-10-13 22:22 | ED MAR SUMMARY ---
..... Medication Administration Record [facility] [address] [place] [address] Patient: ISAC JURADO Visit ID: [id number] 30y, F Weight: 74.8 kg Height/Length: 66 in BMI: 26.6 ALLERGIES: Celexa Given 21:55 10/13/2016 Antoine Caldwell R.N. Medication Administered: KEFLEX [PO] (CEPHALEXIN), Dose: 500 mg PO. Medication Ordered: Keflex PO 500 mg (NOW).
== END 2016-10-13 22:01 | disposition home or self-care (01) ==
LOC: ED SRH 20:44
DX: K02.9 Dental caries, unspecified (principal); N39.0 Urinary tract infection, site not specified; F17.200 Nicotine dependence, unspecified, uncomplicated
CPT/HCPCS: 90004; 90148; 90469; 93070

== ENCOUNTER 2016-11-23 22:49 | Emergency (ER) | payer OTHER ==
--- NOTE | 2016-11-24 01:11 | ED ORDER SUMMARY ---
..... Patient: ISAC JURADO OrderSheet [facility] VisitID: [id number] [place] [address] 31y, F Registration Date/Time: 11/23/2016 ORDER SHEET Weight: 74.8 kg (stated) Allergies: Celexa GENERAL ORDERS: Cervical Spine 2 or 3V Urgent (23:14 11/23/2016 Tyree Johnson) (Ack 23:15 ALawrence ER Tech1) (0:10 TLewis R.N.) Lumbar Spine 2 or 3V Urgent (23:14 11/23/2016 Tyree Johnson) (Ack 23:15 ALawrence ER Tech1) (0:10 TLewis R.N.) MEDICATION ORDERS: Toradol IM 60 mg (NOW) (23:13 11/23/2016 Tyree Johnson) (Ack 23:14 HSoule) Tylenol PO 650 mg (NOW) (23:13 11/23/2016 Tyree Johnson) (Ack 23:14 HSoule) (23:25 DDavis R.N.) IV FLUIDS: ORDER SHEET NOTES: [Electronically signed by Lois Tobin (01:44 11/24/2016)] [Electronically signed by Karel Wing Dr. (07:01 12/02/2016)] [Electronically locked/signed by Lois Tobin (01:44 11/24/2016)]
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
--- NOTE | 2016-11-24 01:11 | ED ORDER SUMMARY ---
..... Patient: ISAC JURADO OrderSheet [facility] VisitID: [id number] [place] [address] 31y, F Registration Date/Time: 11/23/2016 ORDER SHEET Weight: 74.8 kg (stated) Allergies: Celexa GENERAL ORDERS: Cervical Spine 2 or 3V Urgent (23:14 11/23/2016 Tyree Johnson) (Ack 23:15 ALawrence ER Tech1) (0:10 TLewis R.N.) Lumbar Spine 2 or 3V Urgent (23:14 11/23/2016 Tyree Johnson) (Ack 23:15 ALawrence ER Tech1) (0:10 TLewis R.N.) MEDICATION ORDERS: Toradol IM 60 mg (NOW) (23:13 11/23/2016 Tyree Johnson) (Ack 23:14 HSoule) Tylenol PO 650 mg (NOW) (23:13 11/23/2016 Tyree Johnson) (Ack 23:14 HSoule) (23:25 DDavis R.N.) IV FLUIDS: ORDER SHEET NOTES: [Electronically signed by Lois Tobin (01:44 11/24/2016)] [Electronically signed by Karel Wing Dr. (07:01 12/02/2016)] [Electronically locked/signed by Lois Tobin (01:44 11/24/2016)]
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
--- NOTE | 2016-12-02 07:01 | ED MED RECONCILIATION SUMMARY ---
Patient: ISAC JURADO Medication Reconciliation Report [facility] VisitID: [id number] [place] [address] 31y, F Registration Date/Time: 11/23/2016 Weight: 74.8 kg Height/Length: 67 in. BMI: 25.9 ALLERGIES: Celexa The patient's Home Medications are listed below: NONE. The source(s) of the original Home Medication information: Not obtained. The following Medications were given to the patient in the Emergency Department: Tylenol [PO] PO 650 mg, administered: 11/23/2016 11:20:00 PM The following Medications were prescribed to the patient: [place] 5 mg / 325 mg tablets: take 1 orally every 6 hours as needed for pain. Dispense twelve (12). No refill. Substitution is permissible. -- Karel Wing Dr. Cyclobenzaprine 10 mg: take 1 orally every 8 hours as needed for muscle spasm or pain. Dispense twenty (20). No refills. -- Karel Wing Dr.
--- NOTE | 2016-12-02 07:01 | ED MAR SUMMARY ---
..... Medication Administration Record [facility] [address] [place] [place] [address] Patient: ISAC JURADO Visit ID: [id number] 31y, F Weight: 74.8 kg Height/Length: 67 in BMI: 25.9 ALLERGIES: Celexa Given 23:20 11/23/2016 Tirso Tejada R.N. Medication Administered: TYLENOL [PO] (ACETAMINOPHEN), Dose: 650 mg Tablets PO. Medication Ordered: Tylenol PO 650 mg (NOW).
--- NOTE | 2016-12-02 07:01 | ED MAR SUMMARY ---
..... Medication Administration Record [facility] [address] [place] [address] Patient: ISAC JURADO Visit ID: [id number] 31y, F Weight: 74.8 kg Height/Length: 67 in BMI: 25.9 ALLERGIES: Celexa Given 23:20 11/23/2016 Tirso Tejada R.N. Medication Administered: TYLENOL [PO] (ACETAMINOPHEN), Dose: 650 mg Tablets PO. Medication Ordered: Tylenol PO 650 mg (NOW).
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
--- NOTE | 2016-12-02 07:01 | ED MED RECONCILIATION SUMMARY ---
Patient: ISAC JURADO Medication Reconciliation Report [facility] VisitID: [id number] [place] [address] 31y, F Registration Date/Time: 11/23/2016 Weight: 74.8 kg Height/Length: 67 in. BMI: 25.9 ALLERGIES: Celexa The patient's Home Medications are listed below: NONE. The source(s) of the original Home Medication information: Not obtained. The following Medications were given to the patient in the Emergency Department: Tylenol [PO] PO 650 mg, administered: 11/23/2016 11:20:00 PM The following Medications were prescribed to the patient: [place] 5 mg / 325 mg tablets: take 1 orally every 6 hours as needed for pain. Dispense twelve (12). No refill. Substitution is permissible. -- Karel Wing Dr. Cyclobenzaprine 10 mg: take 1 orally every 8 hours as needed for muscle spasm or pain. Dispense twenty (20). No refills. -- Karel Wing Dr.
== END 2016-11-24 01:20 | disposition home or self-care (01) ==
LOC: ED SRH 22:49
DX: S13.4XXA Sprain of ligaments of cervical spine, initial encounter (principal); M54.5 Low back pain; V44.6XXA Car passenger injured in collision with heavy transport vehicle or bus in traffic accident, initial encounter; Y93.9 Activity, unspecified; Y92.410 Unspecified street and highway as the place of occurrence of the external cause; Y99.9 Unspecified external cause status